=== PATIENT | female | born 1970 | race Caucasian/White ===

== ENCOUNTER 2023-06-20 07:03 | Emergency (ER) | payer SELFPAY ==
[2023-06-20] MEDS ORDERED: Ketorolac Tromethamine 30 MG/ML VIAL ONE (07:22)
== END 2023-06-20 07:43 | disposition home or self-care (01) ==
LOC: ERS 07:03
DX: R68.84 Jaw pain (principal)
CPT/HCPCS: 96372; 99283; J1885